=== PATIENT | female | born 1980 | race Caucasian/White ===

== ENCOUNTER 2016-12-27 01:16 | Emergency (ER) | payer OTHER ==
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
== END 2016-12-27 02:25 | disposition home or self-care (01) ==
LOC: ER 01:16
DX: Z77.29 Contact with and (suspected) exposure to other hazardous substances (principal)